=== PATIENT | male | born 1985 | race Two or more races ===

== ENCOUNTER 2018-05-22 00:12 | Emergency (ER) | payer SELFPAY ==
[~2018-05-22] VITALS: Ht 177.8 cm; Wt 65.8 kg
[2018-05-22] MEDS ORDERED: ONDANSETRON HCL/PF 4 MG/2 ML VIAL ONE (01:28)
[2018-05-22] MEDS ORDERED: ONDANSETRON HCL/PF - ER 4 MG/2 ML VIAL IV ONE (01:30)
[2018-05-22 01:55] VITALS: BP 137/67
== END 2018-05-22 01:53 | disposition home or self-care (01) ==
LOC: ER 00:16
DX: T40.1X1A Poisoning by heroin, accidental (unintentional), initial encounter (principal); Y92.89 Other specified places as the place of occurrence of the external cause
CPT/HCPCS: 96374; 99284; A4606; J2405; Z7610